=== PATIENT | female | born 1960 | race Caucasian/White ===

== ENCOUNTER 2016-11-21 07:18 | Emergency (ER) | payer OTHER ==
[~2016-11-21] VITALS: Ht 152.4 cm; Wt 76.2 kg
[2016-11-21 09:22] VITALS: BP 123/78
== END 2016-11-21 09:22 | disposition home or self-care (01) ==
LOC: ED 07:18
DX: M54.9 Dorsalgia, unspecified (principal); R03.0 Elevated blood-pressure reading, without diagnosis of hypertension
CPT/HCPCS: 20552; J2001; J2270; Q0162

== ENCOUNTER 2017-02-02 09:20 | Emergency (ER) | payer OTHER ==
[~2017-02-02] VITALS: Ht 152.4 cm; Wt 75.8 kg
[2017-02-02 10:16] VITALS: BP 139/79
== END 2017-02-02 11:21 | disposition home or self-care (01) ==
LOC: ED 09:20
DX: S40.021A Contusion of right upper arm, initial encounter (principal); M54.5 Low back pain; R03.0 Elevated blood-pressure reading, without diagnosis of hypertension; E78.5 Hyperlipidemia, unspecified; G89.29 Other chronic pain; Z88.8 Allergy status to other drugs, medicaments and biological substances; Z79.899 Other long term (current) drug therapy; X58.XXXA Exposure to other specified factors, initial encounter; Y93.89 Activity, other specified; Y99.8 Other external cause status; Y92.89 Other specified places as the place of occurrence of the external cause

== ENCOUNTER 2017-03-18 20:45 | Emergency (ER) | payer OTHER ==
[~2017-03-18] VITALS: Ht 152.4 cm; Wt 73.5 kg
[2017-03-18 22:27] VITALS: BP 151/83
== END 2017-03-18 22:27 | disposition home or self-care (01) ==
LOC: ED 20:45
DX: M25.521 Pain in right elbow (principal); R07.0 Pain in throat; F45.8 Other somatoform disorders; K58.9 Irritable bowel syndrome, unspecified; G89.29 Other chronic pain; E78.5 Hyperlipidemia, unspecified

== ENCOUNTER 2017-11-24 19:02 | Emergency (ER) | payer OTHER ==
[~2017-11-24] VITALS: Ht 152.4 cm; Wt 78.0 kg
[2017-11-24 19:10] VITALS: Ht 152.4 cm; Wt 78.0 kg
[2017-11-24 22:08] VITALS: BP 159/60
== END 2017-11-24 22:08 | disposition home or self-care (01) ==
LOC: ED 19:02
DX: M62.830 Muscle spasm of back (principal); E78.00 Pure hypercholesterolemia, unspecified; Z88.8 Allergy status to other drugs, medicaments and biological substances
CPT/HCPCS: J1885

== ENCOUNTER 2017-11-28 14:31 | Emergency (ER) | payer OTHER ==
[~2017-11-28] VITALS: Ht 152.4 cm; Wt 78.2 kg
[2017-11-28 14:41] VITALS: BP 142/89; Ht 152.4 cm; Wt 78.2 kg
== END 2017-11-28 15:51 | disposition home or self-care (01) ==
LOC: ED 14:31
DX: R19.7 Diarrhea, unspecified (principal); F32.9 Major depressive disorder, single episode, unspecified; M06.9 Rheumatoid arthritis, unspecified; G89.4 Chronic pain syndrome; E78.00 Pure hypercholesterolemia, unspecified; Z87.19 Personal history of other diseases of the digestive system

== ENCOUNTER 2018-07-19 08:11 | Emergency (ER) | payer OTHER ==
[~2018-07-19] VITALS: Ht 152.4 cm; Wt 73.5 kg
[2018-07-19 08:19] VITALS: BP 162/100; Ht 152.4 cm; Wt 73.5 kg
== END 2018-07-19 08:52 | disposition home or self-care (01) ==
LOC: ED 08:11
DX: S61.217A Laceration without foreign body of left little finger without damage to nail, initial encounter (principal); G89.29 Other chronic pain; E78.00 Pure hypercholesterolemia, unspecified; Z98.51 Tubal ligation status; Z98.890 Other specified postprocedural states; W25.XXXA Contact with sharp glass, initial encounter; Y93.89 Activity, other specified; Y92.090 Kitchen in other non-institutional residence as the place of occurrence of the external cause; Y99.8 Other external cause status
CPT/HCPCS: 90715

== ENCOUNTER 2018-09-21 11:33 | Emergency (ER) | payer OTHER ==
[~2018-09-21] VITALS: Ht 152.4 cm; Wt 73.5 kg
[2018-09-21 11:38] VITALS: Ht 152.4 cm; Wt 73.5 kg
[2018-09-21 12:22] LABS: BASOPHIL % 0.6 % (0-2); PLATELET COUNT 281 x10^3mcL (130-400); RED CELL DISTRIBUTION WIDTH 14.4 % (11.5-14.5)
[2018-09-21 12:40] LABS: microscopic required? YES; urine erythrocyte 1+ (NEGATIVE)
[2018-09-21 12:50] LABS: CALCIUM 8.8 mg/dL (8.5-10.1); CARBON DIOXIDE 27.8 mmol/L (21-32); CHLORIDE SERUM 104 mmol/L (98-107); CREATININE SERUM 0.9 mg/dL (0.6-1.0); GFR1 > 60 mL/min; GLUCOSE SERUM 123 mg/dL (74-106); POTASSIUM SERUM 3.6 mmol/L (3.5-5.1); SODIUM SERUM 139 mmol/L (136-145)
[2018-09-21 12:54] LABS: ALBUMIN 4.1 g/dL (3.4-5.0); ALKALINE PHOSPHATASE 92 U/L (46-116); ALT/SGPT 20 U/L (14-59); AST/SGOT 15 U/L (15-37); BILIRUBIN TOTAL 0.34 mg/dL (0.20-1.00); TOTAL PROTEIN, SERUM 7.3 g/dL (6.4-8.2)
[2018-09-21 15:21] VITALS: BP 155/100
== END 2018-09-21 15:21 | disposition home or self-care (01) ==
LOC: ED 11:33
PROVIDERS: Emergency Medicine
DX: R07.89 Other chest pain (principal); R06.02 Shortness of breath; G89.29 Other chronic pain; M54.9 Dorsalgia, unspecified; E78.00 Pure hypercholesterolemia, unspecified; Z88.8 Allergy status to other drugs, medicaments and biological substances
CPT/HCPCS: 36415; Q0092

== ENCOUNTER 2019-03-19 09:10 | Day surgery (SDC) | payer OTHER ==
[~2019-03-19] VITALS: Ht 152.4 cm; Wt 74.8 kg
[2019-03-19 09:24] VITALS: BP 119/73
[2019-03-19 14:43] VITALS: BP 133/75
== END 2019-03-19 13:55 | disposition home or self-care (01) ==
LOC: GI 09:10 → OR 13:00 → GI 13:00
DX: K22.8 Other specified diseases of esophagus (principal); K59.09 Other constipation; I48.91 Unspecified atrial fibrillation; F12.90 Cannabis use, unspecified, uncomplicated; J44.9 Chronic obstructive pulmonary disease, unspecified; M19.90 Unspecified osteoarthritis, unspecified site; E78.00 Pure hypercholesterolemia, unspecified; G47.00 Insomnia, unspecified; Z79.01 Long term (current) use of anticoagulants; Z79.1 Long term (current) use of non-steroidal anti-inflammatories (NSAID); Z88.8 Allergy status to other drugs, medicaments and biological substances; Z79.899 Other long term (current) drug therapy; Z98.42 Cataract extraction status, left eye; Z98.41 Cataract extraction status, right eye; Z98.890 Other specified postprocedural states
CPT/HCPCS: 43235; J1200; J1610; J2250; J2310; J3010; J3490

== ENCOUNTER 2019-04-17 15:36 | Emergency (ER) | payer OTHER ==
[~2019-04-17] VITALS: Ht 152.4 cm; Wt 74.8 kg
[2019-04-17 15:45] VITALS: Ht 152.4 cm; Wt 74.8 kg
[2019-04-17 18:11] LABS: BASOPHIL % 0.6 % (0-2); PLATELET COUNT 256 x10^3mcL (130-400)
[2019-04-17 18:17] LABS: CALCIUM 8.8 mg/dL (8.5-10.1); CARBON DIOXIDE 28.3 mmol/L (21-32); CHLORIDE SERUM 106 mmol/L (98-107); CREATININE SERUM 0.9 mg/dL (0.6-1.0); GFR1 > 60 mL/min; GLUCOSE SERUM 95 mg/dL (74-106); POTASSIUM SERUM 3.8 mmol/L (3.5-5.1); SODIUM SERUM 142 mmol/L (136-145)
[2019-04-17 18:21] LABS: ALBUMIN 3.8 g/dL (3.4-5.0); ALKALINE PHOSPHATASE 89 U/L (46-116); ALT/SGPT 19 U/L (14-59); AST/SGOT 11 U/L (15-37); BILIRUBIN TOTAL 0.31 mg/dL (0.20-1.00); RED CELL DISTRIBUTION WIDTH 14.9 % (11.5-14.5); TOTAL PROTEIN, SERUM 7.2 g/dL (6.4-8.2)
[2019-04-17 18:24] LABS: C REACTIVE PROTEIN < 0.2 mg/dL (<=0.9)
[2019-04-17 19:20] LABS: ERYTHROCYTE SED RATE 17 mm/hr (0-30)
[2019-04-17 21:02] VITALS: BP 112/49
== END 2019-04-17 21:02 | disposition home or self-care (01) ==
LOC: ED 15:36
PROVIDERS: Emergency Medicine
DX: N20.0 Calculus of kidney (principal); N28.1 Cyst of kidney, acquired; I71.9 Aortic aneurysm of unspecified site, without rupture
CPT/HCPCS: J2270; J2405

== ENCOUNTER 2019-05-09 14:14 | Emergency (ER) | payer OTHER ==
[~2019-05-09] VITALS: Ht 152.4 cm; Wt 74.8 kg
[2019-05-09 14:17] VITALS: BP 149/81; Ht 152.4 cm; Wt 74.8 kg
== END 2019-05-09 15:07 | disposition home or self-care (01) ==
LOC: ED 14:14
DX: M79.641 Pain in right hand (principal); G89.29 Other chronic pain; M45.9 Ankylosing spondylitis of unspecified sites in spine; E78.00 Pure hypercholesterolemia, unspecified; Z88.8 Allergy status to other drugs, medicaments and biological substances

== ENCOUNTER 2019-06-09 18:21 | Emergency (ER) | payer OTHER ==
[~2019-06-09] VITALS: Ht 152.4 cm; Wt 73.9 kg
[2019-06-09 18:24] VITALS: BP 169/99; Ht 152.4 cm; Wt 73.9 kg
== END 2019-06-09 19:35 | disposition home or self-care (01) ==
LOC: ED 18:21
DX: M79.662 Pain in left lower leg (principal); R22.42 Localized swelling, mass and lump, left lower limb

== ENCOUNTER 2019-12-18 13:24 | Inpatient (IN) | payer OTHER ==
[~2019-12-18] VITALS: Ht 152.4 cm; Wt 68.9 kg
[2019-12-18 13:38] VITALS: Ht 152.4 cm; Wt 68.9 kg
--- NOTE | 2019-12-18 13:41 | NUR ---
PT BIB [facility] AND AMBULATED TO BED. PT PLACED ON MONITOR AND VS DONE BY LO BECK AND EKG DONE BY [place] EMT. PT AAOX4 WITH C/O 2/10 PRESSURE LIKE PAIN TO MED CHEST X 3 DAYS. PT STATES PAIN HAS BEEN A PERSISTANT 10/10 PAIN, INCREASED WITH EXERTION, BUT HAS SUBSIDED S/P MEDICATIONS GIVEN BY SONALI GIPSON TO THE ER. MEDIC STATES PT WAS GIVEN 325MG ASA AND 2 ROUNDS OF NITRO SL. PT DENIES ANY SOB/RESP ILLNESS, FEVER, N/V/D/C OR URINARY PROBLEMS AT THIS TIME. VS WNL WITH NO SIGNS OF DISTRESS AT THIS TIME.
[2019-12-18 14:20] LABS: BASOPHIL % 0.9 % (0-2); PLATELET COUNT 273 x10^3mcL (130-400)
[2019-12-18 14:21] LABS: RED CELL DISTRIBUTION WIDTH 14.8 % (11.5-14.5)
[2019-12-18 14:30] LABS: microscopic required? YES; urine erythrocyte TRACE (NEGATIVE)
[2019-12-18 14:30] LABS: CALCIUM 8.8 mg/dL (8.5-10.1); CARBON DIOXIDE 25.3 mmol/L (21-32); CHLORIDE SERUM 105 mmol/L (98-107); CREATININE SERUM 0.8 mg/dL (0.6-1.0); GFR1 > 60 mL/min; GLUCOSE SERUM 104 mg/dL (74-106); POTASSIUM SERUM 3.8 mmol/L (3.5-5.1); SODIUM SERUM 141 mmol/L (136-145)
[2019-12-18 14:34] LABS: ALBUMIN 3.8 g/dL (3.4-5.0); ALKALINE PHOSPHATASE 75 U/L (46-116); ALT/SGPT 18 U/L (14-59); AST/SGOT 16 U/L (15-37); BILIRUBIN TOTAL 0.4 mg/dL (0.20-1.00); CHOLESTEROL 155 mg/dL (<200); HDL CHOLESTEROL 49 mg/dL (40-60); LIPASE 59 IU/L (73-393); TOTAL PROTEIN, SERUM 6.9 g/dL (6.4-8.2)
--- NOTE | 2019-12-18 14:34 | NUR ---
PT SITTING UP ON BED WITH EYES CLOSED WITH NO SIGNS OF DISTRESS.
[2019-12-18 14:50] LABS: AMPHETAMINE QUAL UR NONE DETECTED (See below)
--- NOTE | 2019-12-18 17:58 | NUR ---
report received from elissa martínez. all questions and concerns addressed at this time
--- NOTE | 2019-12-18 19:07 | NUR ---
REPORT GIVEN TO ORI BECK. ALL QUESTIONS AND CONCERNS ADDRESSED AT THIS TIME
--- NOTE | 2019-12-18 19:07 | NUR ---
RECEIVED REPORT FROM KIRAN RM TO ASSUME PT CARE.
--- NOTE | 2019-12-18 19:15 | NUR ---
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 PT STATES, "I HAVE A HEADACHE AND NOONE HAS HELPED ME". PT NOTED CRYING. PT HR NOTED AT 111. CALLED RESIDENT CARLITOS FOR PAIN MEDICATION ORDER. PER CARLITOS ADMINISTER 650MG OF TYLENOL, SEE EMAR.
[2019-12-18 19:59] LABS: CHOLESTEROL/HDL RATIO 3.4
[2019-12-18 20:02] LABS: T3 TOTAL 1.63 ng/mL
--- NOTE | 2019-12-18 20:12 | NUR ---
PT AMBULATED TO BATHROOM WITH STEADY GAIT NOTED.
[2019-12-18 20:37] LABS: FREE T4 1.36 ng/dL (0.76-1.46); FREE THYROXINE INDEX 3.3 ug/dL (1.4-4.5); T4(THYROXINE) 9.7 ug/dL (4.7-13.3)
--- NOTE | 2019-12-18 20:44 | NUR ---
PT ASSISTED WITH POSITION CHANGE IN BED. PT DENIES PAIN AT THIS TIME. PT REPORTS HER HEADACHE "IS GONE". PT PROVIDED WITH WARM BLANKET FOR COMFORT AND DIMMED LIGHTS AT THIS TIME FOR COMFORT. PT REMAINS ON FULL MANAGER ROOM AND IN VIEW OF NURSES STATION. NO S/S OF DISTRESS NOTED.
[2019-12-18] MEDS ORDERED: DILTIAZEM HCL120 M3 PO (21:58)
[2019-12-18] MEDS ORDERED: SIMVASTATIN80 M1 PO (21:59)
--- NOTE | 2019-12-18 22:36 | NUR ---
REPORT CALLED TO KIRAN ABREU TO ASSUME PT CARE. PT TO BE TRANSFERED TO 244
--- NOTE | 2019-12-18 22:51 | NUR ---
PT TRANSFERED VIA GURNEY BY LISA, EMT AND KIRAN ROSE TO 244. PT ON FULL SURGICAL APPLIANCE FITTER DURING TRANSPORT. PT IS A&OX4, BREATHING E/U, NO S/S OF DISTRESS NOTED. PT TRANSFERED WITHOUT INJURY. NURSE AT BEDSIDE TO ASSUME PT CARE.
[2019-12-18 23:27] VITALS: BP 131/75
--- NOTE | 2019-12-18 23:37 | NUR ---
RECEIVED PT FROM ER, PT ADMIT FOR CHEST PAIN, PT IS A/O X4, VERBAL RESPONSIVE. LUNG SOUND CLEAR BILATERAL, NO COUGH, NO SOB. PT IS ON TELE 15, NSR, C/O MILD PRESSURE AT MID CHEST. 2/10 BOWEL SOUND PRESENT ALL 4 QUADRANTS, NO DISTENTION, NO TENDER. PEDAL PULSE PRESENT BOTH FEET, IV AT LEFT HAND, NO LEAKING, NO INFILTRATION. ALL ADLS ASSIST, ALL NEED MET, CALL LIGHT IN REACH, WILL CONTINUE TO MONITOR.
--- NOTE | 2019-12-19 00:28 | NUR ---
PT RESTING IN BED WITH EYES CLOSED. LAYING ON L SIDE. NO SIGNS OF DISTRESS OR PAIN NOTED. BREATHING EVEN/UNLABORED ON RA. CALL LIGHT WITHIN REACH, BED AT LOWEST POSITION. WILL CONTINUE TO MONITOR.
[2019-12-19 05:45] VITALS: BP 118/72
--- NOTE | 2019-12-19 05:57 | NUR ---
PT RESTING IN BED WITH EYES CLOSED. AWAKENS WITH VERBAL STIMULI. DENIES ANY CHEST PAIN OR DISCOMFORT. NO COMPLAINTS OF PAIN SINCE ADMISSION. CALL LIGHT WITHIN REACH, BED AT LOWEST POSITION. WILL ENDORSE DAY NURSE.
--- NOTE | 2019-12-19 08:55 | NUR ---
AT 0715 - RECEIVED PATIENT FROM NIGHT NURSE. SLEEPING. RESPIRATIONS REGULAR. MONITOR SHOWING SINUS RHYTHM; RATE 80'S. CONTINUING TO MONITOR.
[2019-12-19 09:16] VITALS: BP 139/66
--- NOTE | 2019-12-19 11:10 | NUR ---
AT 0915 - PATIENT AWAKE, ALERT AND ORIENTED. HAS HAD SMALL AMOUNT OF BREAKFAST. REPORTS DULL, PRESSURE-LIKE PAIN IN CHEST. TROPONIN NEGATIVE X 3 SCHEDULED MORNING MEDS ADMINISTERED PRESCRIBED. PATIENT AMBULATORY TO BATHROOM.
[2019-12-19] MEDS ORDERED: KEFLEX500 M1 PO (11:50)
[2019-12-19 12:00] VITALS: BP 139/66
[2019-12-19 12:04] VITALS: BP 146/83
--- NOTE | 2019-12-19 12:46 | NUR ---
RECEIVED DISCHARGE ORDERS.
--- NOTE | 2019-12-19 13:33 | NUR ---
PRINTED DISCHARGE INSTRUCTIONS GIVEN AND EXPLAINED TO PATIENT. ELECTRONIC PRESCRIPTION HAS BEEN SENT TO PATIENT'S PREFERRED PHARMACY. IV CATHETER REMOVED INTACT. TAKEN OFF CARDIAC MONITORING. HAS EATEN FOR LUNCH. PREPARED FOR DISCHARGE. AWAITING RIDE HOME.
--- NOTE | 2019-12-19 13:43 | NUR ---
DISCHARGED HOME WITH FAMILY. TAKEN TO CAR BY MAHENDRA.
== END 2019-12-19 13:42 | disposition home or self-care (01) | DRG 203 ==
LOC: ED 13:24 → DU 18:01 → EDBEDREQSVC 18:03 → DU 22:51
PROVIDERS: Emergency Medicine; ADMIT Internal Medicine; ATTEND Internal Medicine
DX: M94.0 Chondrocostal junction syndrome [Tietze] (principal); I48.91 Unspecified atrial fibrillation; G89.29 Other chronic pain; E78.00 Pure hypercholesterolemia, unspecified; M54.9 Dorsalgia, unspecified; M06.9 Rheumatoid arthritis, unspecified; N32.81 Overactive bladder; I10 Essential (primary) hypertension; J44.9 Chronic obstructive pulmonary disease, unspecified; F12.10 Cannabis abuse, uncomplicated; E78.5 Hyperlipidemia, unspecified; N39.0 Urinary tract infection, site not specified; Z98.1 Arthrodesis status; Z87.891 Personal history of nicotine dependence; Z98.51 Tubal ligation status; Z82.3 Family history of stroke; Z82.49 Family history of ischemic heart disease and other diseases of the circulatory system
CPT/HCPCS: 83880; 84439; 99406; G0378; J0696; J7060; Q0092